=== PATIENT | female | born 1980 | race Caucasian/White ===

== ENCOUNTER 2017-04-25 11:38 | Emergency (ER) | payer MEDICAID ==
[~2017-04-25] VITALS: Ht 162.6 cm; Wt 93.9 kg
[~2017-04-25 11:38] MED LIST: ADVIL COLD & SI1 TAB PO; ERYTHROMYCIN1 GM/UDP OP; IBUPROFEN400 MG PO; KEFLEX 500MG.500 MG PO; LINZESS290 MCG PO; MEDROL 4MG. DOSE4 MG PO; NAPROSYN 500MG500 MG PO; NOMEDS; NORCO 325 MG-51 TAB PO; PERCOCET 5/3251 EACH PO; PERCOCET1 TAB PO; PHENERGAN 25MG.25 M1 PO; ROPINIROLE HYDRO1 M1 PO; SURFAK 240MG C240 MG PO; VIBRAMYCIN 100100 MG PO; VISTARIL25 M1 PO; VISTARIL25 MG PO; XANAX 0.5MG TA0.5 MG PO; XANAX 1MG TABLET1 MG PO
--- NOTE | 2017-04-25 12:05 | Urgent Treatment Center Report ---
History of Present Issue Date/Time Seen by Provider 04/25/17 1202 Visit Reason Pt arrived:Walked Presenting Problem:PT C/O RT EYE REDNESS SINCE THIS AM. PT STATES THAT IT FEELS IF SHE HAS A "FILM" OVER HER EYE. PT ADVISES THAT SHE IS DUE TO HAVE ILEOSTOMY SURGERY ON WEDNESDAY SO SHE IS CONCERNED ABOUT INFECTION Location if Accident: Onset of symptoms date/time:/ or onset unknown for:MEDICAL HX UNKNOWN Have you (or family members/close friends) recently traveled outside the [place]? N If Yes, where/when: Have you had exposure to infectious disease within the past month? TB? Other? Specify: Patient state that she woke up this morning with her right eye red, watering and drainage States that it feels like there is drainage in there that she cannot get out. State that she is scheduled to have surgery on Wednesday and wanted to come in and get checked to see if she had [place] eye that way she could get it cleared up before her surgery ALLERGIES Coded Allergies: Penicillins (06/05/16) Sulfa (Sulfonamide Antibiotics) (06/05/16) codeine (06/05/16) morphine (SWELLING 02/02/17) Home Medications Active Scripts Hydroxyzine Pamoate (Vistaril 25MG CAP) 25 MG PO Q6HP PRN anxiety,nausea #10 CAP Prov: 02/02/17 Reported Medications Alprazolam (Xanax 1MG) 1 MG PO BID #60 Linaclotide (Linzess 290MCG) 290 MCG PO DAILY #30 ROPINIROLE HCL (Ropinirole Hydrochloride) 1 MG PO DAILY #30 History Medical History General CAD? No Angina: No [place]: No Hypertension? No Hyperlipidemia? No CHF? No DVT? No PE? No COPD? No Asthma? No Anemia? No GERD? No Gastric ulcers? No GI Bleed? No Hernia? No Thyroid Problems? No Hypothyroidism? No CVA? No Seizures? No Diabetes? No Renal Insuffiency? No UTI? No Stones? No BPH? No GB Disease: No Nephritic Syndrome? No Asplenia? No Hepatitis? No Sickle Cell Disease? No Arthritis? No Migraines? No Cataracts? No Glaucoma? No MRSA? No HIV? No TB? No Anxiety? No Depression? No Cancer? No More? Yes Additional hx: IBS Immunization HX DT/Tetanus 1-4 YRS Surgical Hx Previous Surgery?Y TUBAL LIGATION HYSTERECTOMY Family History Family HX Diabetes No CAD No Hypertension No Hyperlipidemia No Cancer No TB No Social History Smoking Hx Smoker: Current Every Day Smoker Tobacco: Yes Type Cigarettes Packs/day < 1 Pack Alcohol Alcohol: No Review of Systems All Other Systems Reviewed and Negative Eyes other Comment Right eye redness, drainage Physical Exam Vital Signs Vital Signs Date Time Temp Pulse Resp B/P Pulse O2 O2 Flow FiO2 Ox Delivery Rate 04/25 1152 98.4 87 18 136/89 98 General Appearance normal appearance, WD/WN, no apparent distress Eye Exam - bilateral eye normal exam, bilateral eye PERRL Respiratory Status Yes: trachea midline, chest symmetrical, non tender chest. No: respiratory distress. 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 No Departure Departure Time of Disposition 1215 Disposition DC Home or Self Care(routine) Clinical Impression Primary Impression: Conjunctivitis Qualifiers: Conjunctivitis type: unspecified Laterality: right Qualified Code: H10.9 - Unspecified conjunctivitis Condition STABLE Referrals Marisol CARPIO,German Shepherd (Family) Patient Instructions Conjunctivitis, DI for Conjunctivitis Additional Instructions If condition persists or worsens go see Dr Jaramillo Beef Specialist in [place] Follow up with family doctor Return if needed Use drops as directed Discharge Counseling Counseled pt/family regarding diagnosis, medications/RX, home care, follow up needs Prescriptions Current Visit Scripts GENTAMICIN SULFATE (GENTAMICIN 0.3% OPHTH SOLN) 1-2 DROP OP Q4HP PRN conjunctivitis #1 BOT TO AFFECTED EYE(S) at 1218
--- NOTE | 2017-04-25 12:05 | Urgent Treatment Center Report ---
History of Present Issue Date/Time Seen by Provider 04/25/17 1202 Visit Reason Pt arrived:Walked Presenting Problem:PT C/O RT EYE REDNESS SINCE THIS AM. PT STATES THAT IT FEELS IF SHE HAS A "FILM" OVER HER EYE. PT ADVISES THAT SHE IS DUE TO HAVE ILEOSTOMY SURGERY ON WEDNESDAY SO SHE IS CONCERNED ABOUT INFECTION Location if Accident: Onset of symptoms date/time:/ or onset unknown for:MEDICAL HX UNKNOWN Have you (or family members/close friends) recently traveled outside the [place]? N If Yes, where/when: Have you had exposure to infectious disease within the past month? TB? Other? Specify: Patient state that she woke up this morning with her right eye red, watering and drainage States that it feels like there is drainage in there that she cannot get out. State that she is scheduled to have surgery on Wednesday and wanted to come in and get checked to see if she had [place] eye that way she could get it cleared up before her surgery ALLERGIES Coded Allergies: Penicillins (06/05/16) Sulfa (Sulfonamide Antibiotics) (06/05/16) codeine (06/05/16) morphine (SWELLING 02/02/17) Home Medications Active Scripts Hydroxyzine Pamoate (Vistaril 25MG CAP) 25 MG PO Q6HP PRN anxiety,nausea #10 CAP Prov: 02/02/17 Reported Medications Alprazolam (Xanax 1MG) 1 MG PO BID #60 Linaclotide (Linzess 290MCG) 290 MCG PO DAILY #30 ROPINIROLE HCL (Ropinirole Hydrochloride) 1 MG PO DAILY #30 History Medical History General CAD? No Angina: No [place]: No Hypertension? No Hyperlipidemia? No CHF? No DVT? No PE? No COPD? No Asthma? No Anemia? No GERD? No Gastric ulcers? No GI Bleed? No Hernia? No Thyroid Problems? No Hypothyroidism? No CVA? No Seizures? No Diabetes? No Renal Insuffiency? No UTI? No Stones? No BPH? No GB Disease: No Nephritic Syndrome? No Asplenia? No Hepatitis? No Sickle Cell Disease? No Arthritis? No Migraines? No Cataracts? No Glaucoma? No MRSA? No HIV? No TB? No Anxiety? No Depression? No Cancer? No More? Yes Additional hx: IBS Immunization HX DT/Tetanus 1-4 YRS Surgical Hx Previous Surgery?Y TUBAL LIGATION HYSTERECTOMY Family History Family HX Diabetes No CAD No Hypertension No Hyperlipidemia No Cancer No TB No Social History Smoking Hx Smoker: Current Every Day Smoker Tobacco: Yes Type Cigarettes Packs/day < 1 Pack Alcohol Alcohol: No Review of Systems All Other Systems Reviewed and Negative Eyes other Comment Right eye redness, drainage Physical Exam Vital Signs Vital Signs Date Time Temp Pulse Resp B/P Pulse O2 O2 Flow FiO2 Ox Delivery Rate 04/25 1152 98.4 87 18 136/89 98 General Appearance normal appearance, WD/WN, no apparent distress Eye Exam - bilateral eye normal exam, bilateral eye PERRL Respiratory Status Yes: trachea midline, chest symmetrical, non tender chest. No: respiratory distress. Cardiovascular normal exam, regular rate/rhythm, no peripheral edema, no gallop Neurologic alert, shopper's aide II-XII nml as tested, normal exam, no motor/sensory deficits, oriented x 3 Comments Right eye red, conjunctiva red, drainage noted like that consistant with conjunctivitis denies blurred vision Medical Decision Making LABS/Meds/Orders Pt receiving controlled substance in ED? No Departure Departure Time of Disposition 1215 Disposition DC Home or Self Care(routine) Clinical Impression Primary Impression: Conjunctivitis Qualifiers: Conjunctivitis type: unspecified Laterality: right Qualified Code: H10.9 - Unspecified conjunctivitis Condition STABLE Referrals Marisol CARPIO,German Shepherd (Family) Patient Instructions Conjunctivitis, DI for Conjunctivitis Additional Instructions If condition persists or worsens go see Dr Jaramillo Public Safety Dispatcher in [place] Follow up with family doctor Return if needed Use drops as directed Discharge Counseling Counseled pt/family regarding diagnosis, medications/RX, home care, follow up needs Prescriptions Current Visit Scripts GENTAMICIN SULFATE (GENTAMICIN 0.3% OPHTH SOLN) 1-2 DROP OP Q4HP PRN conjunctivitis #1 BOT TO AFFECTED EYE(S) at 1218
[2017-04-25] MEDS ORDERED: GENTAMICIN O5 ML/BOT OP (12:17)
[2017-04-25 12:20] VITALS: BP 136/89
== END 2017-04-25 12:25 | disposition home or self-care (01) ==
LOC: UTC 11:38
DX: H10.9 Unspecified conjunctivitis (principal); F17.210 Nicotine dependence, cigarettes, uncomplicated

== ENCOUNTER 2017-04-29 22:21 | Emergency (ER) | payer MEDICAID ==
[~2017-04-29] VITALS: Ht 162.6 cm; Wt 95.3 kg
[~2017-04-29 22:21] MED LIST changes: +GENTAMICIN O5 ML/BOT OP
--- NOTE | 2017-04-29 23:31 | Emergency Room Report ---
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 N Clinical Suspician of Infection? N Mental Status: 1 - Regular (Normal Baseline) Sepsis Risk:Low Sepsis Risk Have you (or family members/close friends) recently traveled outside the [place]? N If Yes, where/when: Have you had exposure to infectious disease within the past month? TB? Other? Specify: Source patient, RN notes reviewed, family, old records Exam Limitations no limitations Comment pt with 2 day hx of occipital /frontal bearden with no fever or rash and no neuro sx- pt feels it is consistent with prev bearden - no trauma Cardiac Chest Pain Chest pain indicative of cardiac No Timing/Duration this evening Severity moderate ALLERGIES Coded Allergies: Penicillins (06/05/16) Sulfa (Sulfonamide Antibiotics) (06/05/16) codeine (06/05/16) morphine (SWELLING 02/02/17) Home Medications Active Scripts GENTAMICIN SULFATE (GENTAMICIN 0.3% OPHTH SOLN) 1-2 DROP OP Q4HP PRN conjunctivitis #1 BOT Prov: 04/25/17 Hydroxyzine Pamoate (Vistaril 25MG CAP) 25 MG PO Q6HP PRN anxiety,nausea #10 CAP Prov: 02/02/17 Reported Medications Alprazolam (Xanax 1MG) 1 MG PO BID #60 Linaclotide (Linzess 290MCG) 290 MCG PO DAILY #30 ROPINIROLE HCL (Ropinirole Hydrochloride) 1 MG PO DAILY #30 History Medical History General CAD? No Angina: No [place]: No Hypertension? No Hyperlipidemia? No CHF? No DVT? No PE? No COPD? No Asthma? No Anemia? No GERD? No Gastric ulcers? No GI Bleed? No Hernia? No Thyroid Problems? No Hypothyroidism? No CVA? No Seizures? No Diabetes? No Renal Insuffiency? No End Stage Renal Disease? No UTI? No Stones? No BPH? No GB Disease: No Nephritic Syndrome? No Asplenia? No Hepatitis? No Sickle Cell Disease? No Arthritis? No Migraines? No Cataracts? No Glaucoma? No MRSA? No HIV? No TB? No Anxiety? No Depression? No Cancer? No More? 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 Respiratory denies cough, denies shortness of breath, denies wheezing Cardiovascular denies chest pain, denies palpitations, denies syncope Gastrointestinal see HPI, denies abdominal pain, nausea, denies vomiting Genitourinary denies: dysuria, frequency, hesitancy, hematuria. Musculoskeletal denies back pain, denies joint pain, denies joint swelling, denies neck pain Skin denies rash Psychiatric/Neurological see HPI, headache, denies seizure Physical Exam Vital Signs Vital Signs Date Time Temp Pulse Resp B/P Pulse O2 O2 Flow FiO2 Ox Delivery Rate 04/29 2320 98.9 71 14 117/64 96 04/29 2232 98.9 71 14 127/81 96 - WBC >12,000 or <4,000 or 10% bands? 2 or more SIRS Criteria Met? B/P:117/64 MAP:96 Creatinine >2.0? UA output<0.5ml/kg/hr for 2 hrs? Platelet count >100,000? Lactate >2.0mmol/1? INR >1.2 or PTT > than 60 sec? Evidence of Organ Dysfunction? Provider documented clinical suspician of infection? N Sepsis Criteria Count: 0 Sepsis Risk: Low Sepsis Risk General Appearance no apparent distress Eye Exam - bilateral eye PERRL, bilateral eye EOMI Ear, Nose, Throat normal ENT inspection Neck supple Respiratory Status No: respiratory distress. Cardiovascular regular rate/rhythm Peripheral Pulses Pulses normal Yes Extremities normal inspection Strength 4 Upper Ext (L), 4 Upper Ext (R), 4 Lower Ext (L), 4 Lower Ext (R) Neurologic alert, health lead II-XII nml as tested, no motor/sensory deficits Glascow Coma Scale Glascow Coma Scale Response Value EYE response: 4 Spontaneously 4 MOTOR response: 6 OBEYS 6 VERBAL response: 5 Oriented & Converses 5 Total 15 Reflexes Reflexes normal Yes Mental status normal mood/affect Skin no rash cons.w/shingles Medical Decision Making LABS/Meds/Orders Pt receiving controlled substance in ED? No Departure Departure Time of Disposition 2334 Disposition DC Home or Self Care(routine) Clinical Impression Primary Impression: Headache Qualifiers: Headache type: unspecified Headache chronicity pattern: acute headache Intractability: not intractable Qualified Code: R51 - Headache Condition STABLE Referrals Marisol CARPIO,German Shepherd (Family) Patient Instructions DI for Headache Additional Instructions use meds and call pcp in am if needed Discharge Counseling Counseled pt/family regarding diagnosis, follow up needs ED Critical Care Critical Care No at 2331
--- NOTE | 2017-04-29 23:31 | Emergency Room Report ---
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 N Clinical Suspician of Infection? N Mental Status: 1 - Regular (Normal Baseline) Sepsis Risk:Low Sepsis Risk Have you (or family members/close friends) recently traveled outside the [place]? N If Yes, where/when: Have you had exposure to infectious disease within the past month? TB? Other? Specify: Source patient, RN notes reviewed, family, old records Exam Limitations no limitations Comment pt with 2 day hx of occipital /frontal bearden with no fever or rash and no neuro sx- pt feels it is consistent with prev bearden - no trauma Cardiac Chest Pain Chest pain indicative of cardiac No Timing/Duration this evening Severity moderate ALLERGIES Coded Allergies: Penicillins (06/05/16) Sulfa (Sulfonamide Antibiotics) (06/05/16) codeine (06/05/16) morphine (SWELLING 02/02/17) Home Medications Active Scripts GENTAMICIN SULFATE (GENTAMICIN 0.3% OPHTH SOLN) 1-2 DROP OP Q4HP PRN conjunctivitis #1 BOT Prov: 04/25/17 Hydroxyzine Pamoate (Vistaril 25MG CAP) 25 MG PO Q6HP PRN anxiety,nausea #10 CAP Prov: 02/02/17 Reported Medications Alprazolam (Xanax 1MG) 1 MG PO BID #60 Linaclotide (Linzess 290MCG) 290 MCG PO DAILY #30 ROPINIROLE HCL (Ropinirole Hydrochloride) 1 MG PO DAILY #30 History Medical History General CAD? No Angina: No [place]: No Hypertension? No Hyperlipidemia? No CHF? No DVT? No PE? No COPD? No Asthma? No Anemia? No GERD? No Gastric ulcers? No GI Bleed? No Hernia? No Thyroid Problems? No Hypothyroidism? No CVA? No Seizures? No Diabetes? No Renal Insuffiency? No End Stage Renal Disease? No UTI? No Stones? No BPH? No GB Disease: No Nephritic Syndrome? No Asplenia? No Hepatitis? No Sickle Cell Disease? No Arthritis? No Migraines? No Cataracts? No Glaucoma? No MRSA? No HIV? No TB? No Anxiety? No Depression? No Cancer? No More? 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 Respiratory denies cough, denies shortness of breath, denies wheezing Cardiovascular denies chest pain, denies palpitations, denies syncope Gastrointestinal see HPI, denies abdominal pain, nausea, denies vomiting Genitourinary denies: dysuria, frequency, hesitancy, hematuria. Musculoskeletal denies back pain, denies joint pain, denies joint swelling, denies neck pain Skin denies rash Psychiatric/Neurological see HPI, headache, denies seizure Physical Exam Vital Signs Vital Signs Date Time Temp Pulse Resp B/P Pulse O2 O2 Flow FiO2 Ox Delivery Rate 04/29 2320 98.9 71 14 117/64 96 04/29 2232 98.9 71 14 127/81 96 - WBC >12,000 or <4,000 or 10% bands? 2 or more SIRS Criteria Met? B/P:117/64 MAP:96 Creatinine >2.0? UA output<0.5ml/kg/hr for 2 hrs? Platelet count >100,000? Lactate >2.0mmol/1? INR >1.2 or PTT > than 60 sec? Evidence of Organ Dysfunction? Provider documented clinical suspician of infection? N Sepsis Criteria Count: 0 Sepsis Risk: Low Sepsis Risk General Appearance no apparent distress Eye Exam - bilateral eye PERRL, bilateral eye EOMI Ear, Nose, Throat normal ENT inspection Neck supple Respiratory Status No: respiratory distress. Cardiovascular regular rate/rhythm Peripheral Pulses Pulses normal Yes Extremities normal inspection Strength 4 Upper Ext (L), 4 Upper Ext (R), 4 Lower Ext (L), 4 Lower Ext (R) Neurologic alert, piano regulator II-XII nml as tested, no motor/sensory deficits Glascow Coma Scale Glascow Coma Scale Response Value EYE response: 4 Spontaneously 4 MOTOR response: 6 OBEYS 6 VERBAL response: 5 Oriented & Converses 5 Total 15 Reflexes Reflexes normal Yes Mental status normal mood/affect Skin no rash cons.w/shingles Medical Decision Making LABS/Meds/Orders Pt receiving controlled substance in ED? No Departure Departure Time of Disposition 2334 Disposition DC Home or Self Care(routine) Clinical Impression Primary Impression: Headache Qualifiers: Headache type: unspecified Headache chronicity pattern: acute headache Intractability: not intractable Qualified Code: R51 - Headache Condition STABLE Referrals Marisol CARPIO,German Shepherd (Family) Patient Instructions DI for Headache Additional Instructions use meds and call pcp in am if needed Discharge Counseling Counseled pt/family regarding diagnosis, follow up needs ED Critical Care Critical Care No at 2332
[2017-04-30 01:07] VITALS: BP 127/79
== END 2017-04-30 01:07 | disposition home or self-care (01) ==
LOC: ER 22:21
DX: R51 Headache (principal); Z79.899 Other long term (current) drug therapy; F17.210 Nicotine dependence, cigarettes, uncomplicated

== ENCOUNTER → 2017-06-29 | Outpatient (CLI) | payer MEDICAID ==
[~2017-06-29] MED LIST changes: +CIPRO 500MG TA500 MG PO; +DIFLUCAN150 MG PO; +IMODIUM2 MG PO; +OXYCODONE 5MG TA5 MG PO; +ZOFRAN ODT4 MG PO
[2017-06-29 17:22] LABS: AMPHETAMINES/METAMPHETAMINES NEGATIVE ng/mL (<1000)
== END ==
LOC: LAB 13:45
PROVIDERS: Physician Assistant
DX: Z79.899 Other long term (current) drug therapy (principal)